=== PATIENT | female | born 1980 | race Asian ===

== ENCOUNTER → 2017-03-13 | Outpatient (CLI) | payer OTHER ==
[~2017-03-13] MED LIST: GLUCOPHAGE1000 MG PO; MELATONIN3 MG PO; PERCOCET 5-3251 EACH PO; PRENATAL 1+1)(P1 TAB PO
== END | disposition disaster alternative care site (69) ==
LOC: GLAB 13:02
DX: Z32.01 Encounter for pregnancy test, result positive (principal)

== ENCOUNTER → 2017-04-06 | Day surgery (SDC) | payer OTHER ==
[~2017-04-06] VITALS: Ht 157.5 cm; Wt 69.2 kg
--- NOTE | ~2017-04-06 | OR ---
PATIENT'S NAME: MARY ANN [facility] AGE: 36 Y [address] ROOM: [place] [id number] LOCATION: [facility] [place] ADMIT DATE: 04/06/2017 OR/Procedure Report DISCHARGE DATE: FAMILY PHYSICIAN: Lizette Joiner MD ATTENDING PHYSICIAN: Cristina Thakur SURGEON: Cristina Thakur MD SPIN TANK TENDER: DATE OF PROCEDURE: 04/06/2017 PREOPERATIVE DIAGNOSES: 1. Missed . 2. Infertility with pelvic pain. POSTOPERATIVE DIAGNOSES: 1. Missed . 2. Infertility with pelvic pain. PROCEDURE PERFORMED: Diagnostic laparoscopy and suction dilation and curettage. SPIN TANK TENDER SURGEON: None. ESTIMATED BLOOD LOSS: 50 mL. ANESTHESIA: GETA. FINDINGS: Normal uterus, tubes, and ovaries. Normal intraabdominal anatomy. Moderate amounts of products of conception. INDICATIONS: This patient is a 36-year-old female, 2, para 0-0-2-0. She has a history of infertility and unfortunately had a missed AB at 6-7 weeks this . A decision was made for dilation and curettage. The patient also has had some pelvic pain, off and on the right side, and the decision was also made for diagnostic laparoscopy to ensure that she did not have any endometriosis contributing to her pelvic pain and her infertility. Prior to the procedure, the risks, benefits, and alternatives to the procedure were discussed with the patient. She understood the risks to be, but not to be limited to, bleeding, infection, damage to the bowel, bladder, ureter, and surrounding organs and desired to proceed. PROCEDURE IN DETAIL: The patient was taken to the operating room, where general anesthesia was found to be adequate. She was prepped and draped in dorsal lithotomy position and a time-out was performed. The cervix was grasped with a fine-toothed tenaculum and a uterine manipulator was placed. The surgeon's gloves were changed and attention was turned to the abdomen. A PATIENT'S NAME: MARY ANN [facility] AGE: 36 Y [address] ROOM: [place] [id number] LOCATION: [facility] [place] ADMIT DATE: 04/06/2017 OR/Procedure Report DISCHARGE DATE: FAMILY PHYSICIAN: Lizette Joiner MD ATTENDING PHYSICIAN: Cristina Thakur Veress needle was introduced into the abdomen at a 45-degree angle while tenting the abdominal wall. Intraperitoneal placement was confirmed with a drop in pressure with insufflation of CO2 gas. An 11 mm skin incision was made and the scope was introduced. A 5 mm lateral port on the left side was introduced under direct visualization. Using a blunt probe, the bowel was swept away and the pelvic anatomy was surveyed. It was noted to be entirely normal. Both tubes appeared to have normal fimbriae and there was no endometriosis noted. The liver and the gallbladder appeared normal as well. Instruments were removed from the patient's abdomen under direct visualization and as much air was removed as possible. Attention was turned to the patient's vagina. The anterior lip of the cervix was grasped with a fine-toothed tenaculum and sequentially dilated with the Hegar dilators to about 8 mm. An 8 mm suction curette was introduced into the uterus and easily removed of all products of conception. Uterine curettage was used gently to ensure that there were no products left until a uterine cry was noted. The tenaculum was removed and hemostasis was achieved at the tenaculum sites with silver nitrate. Anesthesia provider felt that the patient's abdomen looked slightly distended. I reintroduced the scope and noted a normal anatomy. The skin incisions were closed with 4-0 Monocryl suture. COMPLICATIONS: None. CONDITION: Patient is stable in room. MD JOAN GRAHAM/nakull /[id number] d: 04/06/17 1159 t: 04/09/17 1022, OPERATIVE SUMMARY
[2017-04-06 07:00] LABS: BASOPHIL % 0.3 %; EOSINOPHIL # 0.2 K/uL (0.0-0.5); EOSINOPHIL % 3.3 %; HEMATOCRIT 37.9 % (33.0-46.0); HEMOGLOBIN 12.2 g/dL (11.0-15.0); IMMATURE GRANULOCYTE % 0.3 %; MCH 26.8 pg (27.0-34.0); MCHC 32.2 gm/dL (32.0-36.5); MCV 83.3 fl (83.0-98.0); MONOCYTE # 0.4 K/uL (0.0-1.0); MONOCYTE % 5.6 %; MPV 10.2 fl (9.4-12.4); NEUTROPHIL # (ANC) 4.7 K/uL (1.8-7.8); NEUTROPHIL % 63.5 %; NRBC % 0 /100WBC (0-0.00); PLATELET COUNT 258 K/uL (150-450); RBC 4.55 M/uL (3.50-5.50); RDW-CV 14.6 % (11.9-14.6); WBC 7.4 K/uL (4.0-11.0)
== END | disposition disaster alternative care site (69) ==
LOC: GPOC 04-05 15:00 → GSDC 06:00
PROVIDERS: Obstetrics & Gynecology
PROC: 10D17ZZ Extraction of Products of Conception, Retained, Via Natural or Artificial Opening (ICD-10-PCS; principal; 2017-04-06)
PROC: 0WJJ4ZZ Inspection of Pelvic Cavity, Percutaneous Endoscopic Approach (ICD-10-PCS; 2017-04-06)
DX: O02.1 Missed abortion (principal); N97.9 Female infertility, unspecified; E03.9 Hypothyroidism, unspecified; E28.2 Polycystic ovarian syndrome; Z79.899 Other long term (current) drug therapy
CPT/HCPCS: J0690; J2001; J2210; J3010; J7030